=== PATIENT | male | born 1975 | race Caucasian/White ===

== ENCOUNTER → 2020-07-06 | Outpatient (CLI) | payer OTHER | END | disposition home or self-care (01) | LOC: CARD 14:16 | PROVIDERS: ATTEND Nurse Practitioner Family | DX: R06.89 Other abnormalities of breathing (principal); R05 Cough; R06.00 Dyspnea, unspecified | CPT/HCPCS: 94060 ==

== ENCOUNTER → 2020-09-18 | Outpatient (CLI) | payer OTHER | END | disposition home or self-care (01) | LOC: CVU 15:33 | PROVIDERS: ATTEND Internal Medicine Cardiovascular Disease | DX: I34.0 Nonrheumatic mitral (valve) insufficiency (principal); I51.7 Cardiomegaly | CPT/HCPCS: 93306; 93356 ==

== ENCOUNTER → 2020-09-22 | Outpatient (CLI) | payer OTHER | END | disposition home or self-care (01) | LOC: CFH 15:26 | PROVIDERS: ATTEND Internal Medicine Cardiovascular Disease | DX: J92.9 Pleural plaque without asbestos (principal); J47.9 Bronchiectasis, uncomplicated; J84.9 Interstitial pulmonary disease, unspecified; R06.02 Shortness of breath | CPT/HCPCS: 71250 ==

== ENCOUNTER 2021-01-27 08:32 | Day surgery (SDC) | payer OTHER ==
[~2021-01-27] VITALS: Ht 182.9 cm; Wt 93.0 kg
[2021-01-27 09:11] VITALS: BP 137/89
[2021-01-27 09:26] LABS: BASOPHILS % (AUTO) 1 % (0-1); EOSINOPHILS % (AUTO) 2 % (1-7); LYMPHOCYTES % (AUTO) 16 % (22-44); MEAN CORPUSCULAR HEMOGLOBIN 32.9 pg (27.5-34.5); MEAN CORPUSCULAR HGB CONC 34.6 g/dL (33.2-36.2); MONOCYTES % (AUTO) 8 % (2-9); NEUTROPHILS % (AUTO) 73 % (42-75); PLATELET COUNT 226 x10^3/uL (130-400); RED BLOOD COUNT 5.08 x10^6/uL (4.38-5.82); RED CELL DISTRIBUTION WIDTH 13.2 % (9.4-14.8)
[2021-01-27] MEDS ORDERED: MYCO250C PO/NG (09:35)
[2021-01-27] MEDS ORDERED: PRED20TA PO (09:35)
[2021-01-27 09:36] LABS: ANION GAP 7 mmol/L (5-15); CALCIUM 9.2 mg/dL (8.5-10.1); CHLORIDE 108 mmol/L (98-107); CREATININE 1.11 mg/dL (0.7-1.3)
[2021-01-27] MEDS ORDERED: SULF1TAB23 PO (09:37)
[2021-01-27] MEDS ORDERED: MYCO500T3 PO (09:39)
[2021-01-27] MEDS ORDERED: MIDAZOLAM 1 MG/ML, 2ML ONE (10:50)
[2021-01-27] MEDS ORDERED: DIPHENHYDRAMINE 50 MG/ML, 1ML ONE (10:51)
[2021-01-27] MEDS ORDERED: LIDOCAINE 1%, 20ML ONE (10:51)
[2021-01-27] MEDS ORDERED: FENTANYL PF 100 MCG/2ML ONE (10:51)
[2021-01-27] MEDS ORDERED: SODIUM CHLORIDE 0.9% IV PRN (11:30)
[2021-01-27] MEDS ORDERED: ADENOSINE IV PRN (11:30)
== END 2021-01-27 13:12 | disposition home or self-care (01) ==
LOC: CACL 08:32
PROVIDERS: ATTEND Internal Medicine Cardiovascular Disease
DX: J84.9 Interstitial pulmonary disease, unspecified (principal); I27.20 Pulmonary hypertension, unspecified; Z79.899 Other long term (current) drug therapy
CPT/HCPCS: 36415; 80048; 82803; 85025; 93451; 93463; 99156; 99157; C1894; J0153; J1200; J2250; J3010